=== PATIENT | female | born 1960 | race African-American/Black ===

== ENCOUNTER 2021-10-22 17:04 | Inpatient (IN) | payer OTHER ==
[~2021-10-22] VITALS: Ht 180.3 cm; Wt 113.4 kg
[2021-10-22 17:18] VITALS: BP 85/47
[2021-10-22] MEDS ORDERED: methylPREDNISolone SS 125 MG in WATER STERILE 2 ML IV ONE (17:35)
[2021-10-22] MEDS ORDERED: ALBUTEROL 0.083% 2.5 MG/3 ML NEBU INH ONE (17:35)
[2021-10-22] MEDS ORDERED: IPRATROPIUM 0.02% 0.5 MG/2.5 ML NEBU INH ONE (17:35)
[2021-10-22] MEDS ORDERED: NACL 0.9% 1,000 ML IV SCH (17:35)
[2021-10-22] MEDS ORDERED: methylPREDNISolone SS 125 MG/2 ML VIAL IVP SCH (17:35)
[2021-10-22] MEDS ORDERED: NACL 0.9% 1,000 ML IV ONE ×2 (17:35→19:35)
[2021-10-22] MEDS ORDERED: MIDAZOLAM 5 MG/5 ML VIAL IV ONE (18:20)
[2021-10-22] MEDS ORDERED: MIDAZOLAM 5 MG/5 ML VIAL ONE (18:24)
[2021-10-22 18:31] LABS: BASOPHILS # (AUTO) 0.1 K/uL (0.00-0.22); BASOPHILS % (AUTO) 0.6 % (0.0-2.0); EOSINOPHILS % (AUTO) 0.4 % (0.0-4.0); HEMATOCRIT 37.2 % (36-48); HEMOGLOBIN 11.7 g/dL (12.0-16.0); LYMPHOCYTES # (AUTO) 1.7 K/uL (2.5-16.5); LYMPHOCYTES % (AUTO) 15.3 % (20.5-51.1); MEAN CORPUSCULAR HEMOGLOBIN 28 pg (27-31); MEAN CORPUSCULAR HGB CONC 31 g/dL (33-37); MONOCYTES # (AUTO) 0.7 K/uL (0.8-1.0); MONOCYTES % (AUTO) 6.6 % (1.7-9.3); NEUTROPHILS # (AUTO) 8.7 K/uL (1.8-7.7); NEUTROPHILS % (AUTO) 77.1 % (42.2-75.2); PLATELET COUNT (AUTO) 257 K/uL (140-450); RED BLOOD CELL COUNT(AUTO) 4.22 MIL/uL (4.20-5.40); WHITE BLOOD COUNT (AUTO) 11.3 K/uL (4.8-10.8)
[2021-10-22 18:52] LABS: ALBUMIN 3.5 g/dL (3.4-5.0); CREATININE 2.3 mg/dL (0.6-1.3); TOTAL BILIRUBIN 0.2 mg/dL (0.0-1.0)
[2021-10-22] MEDS ORDERED: ONDANSETRON 4 MG/2 ML VIAL IVP ONE (19:00)
[2021-10-22 20:14] LABS: PROTHROMBIN TIME 10.8 secs (10.8-13.4)
[2021-10-22] MEDS ORDERED: ONDANSETRON 4 MG/2 ML VIAL IM/IVP PRN (21:25)
[2021-10-22] MEDS ORDERED: ZOLPIDEM 5 MG TAB PO PRN (21:25)
[2021-10-22] MEDS ORDERED: guaiFENesin DM 200/20 MG-10 ML 10 ML UDC PO PRN (21:25)
[2021-10-22] MEDS ORDERED: POTASSIUM CHLORIDE 10 MEQ TABER PO PRN (21:25)
[2021-10-22] MEDS ORDERED: HYDROcodone/APAP 7.5/325 MG 1 TAB PO PRN (21:25)
[2021-10-22] MEDS ORDERED: DOCUSATE SODIUM 100 MG GELCAP PO PRN (21:25)
[2021-10-22] MEDS ORDERED: ACETAMINOPHEN 325 MG TAB PO PRN (21:25)
[2021-10-22] MEDS ORDERED: ALBUTEROL SULFATE/IPRATROPIU 3 ML SOL IH PRN (21:30)
[2021-10-22] MEDS ORDERED: NACL 0.9% 2,000 ML IV ONE (21:30)
[2021-10-22 22:15] LABS: CHOL/HDL RATIO 2.5 (1-4.5); FREE T4 (FREE THYROXINE) 0.97 ng/dL (0.76-1.46); MAGNESIUM 1.8 mg/dL (1.8-2.4); PHOSPHORUS 5.7 mg/dL (2.5-4.9); THYROID STIMULATING HORMONE 0.66 uIU/mL (0.34-3.74)
[2021-10-22] MEDS ORDERED: ONDANSETRON 4 MG/2 ML VIAL IVP PRN (22:25)
[2021-10-22 23:45] LABS: APPEARANCE,URINE CLEAR (CLEAR); BILIRUBIN,URINE NEGATIVE (NEGATIVE); BLOOD, URINE 1+ (NEGATIVE); COLOR,URINE YELLOW (YELLOW); LEUKOCYTE ESTERASE ,URINE NEGATIVE (NEGATIVE); NITRITE, URINE NEGATIVE (NEGATIVE); UGLUCOSE NEGATIVE (NEGATIVE)
[2021-10-23 00:26] LABS: BARBITURATE, URINE NEGATIVE ng/ml (NEG <=200); BENZODIAZEPINE, URINE NEGATIVE ng/mL (NEG <=200); CANNABINOID, URINE NEGATIVE ng/mL (NEG <=50); COCAINE, URINE NEGATIVE ng/mL (NEG <=300); OPIATE, URINE NEGATIVE ng/mL (NEG <=2000); PHENCYCLIDINE SCREEN,URINE NEGATIVE ng/mL (NEG <=25)
[2021-10-23 00:29] LABS: CALCIUM OXALATE CRYSTALS,UR None Seen /HPF (None Seen); OTHER CRYSTALS,URINE None Seen /HPF (None Seen); TRICHOMONAS,URINE None Seen /HPF (None Seen); TRIPLE PHOSPHATE CRYSTAL,UR None Seen /HPF (None Seen); URIC ACID CRYSTALS,URINE None Seen /HPF (None Seen); URINE AMORPHOUS URATE None Seen /HPF (None Seen); YEAST,URINE None Seen /HPF (None Seen)
[2021-10-23] MEDS: NACL 0.9% 1,000 ML IV SCH ×4 (00:32→21:41)
[2021-10-23 04:00] VITALS: BP 106/61
[2021-10-23] MEDS: ALBUTEROL SULFATE/IPRATROPIU 3 ML SOL IH SCH ×3 (07:19→19:48)
[2021-10-23 08:00] VITALS: BP 136/57
[2021-10-23 08:28] LABS: BARBITURATE, URINE NEGATIVE ng/ml (NEG <=200); BENZODIAZEPINE, URINE NEGATIVE ng/mL (NEG <=200); CANNABINOID, URINE NEGATIVE ng/mL (NEG <=50); COCAINE, URINE NEGATIVE ng/mL (NEG <=300); OPIATE, URINE NEGATIVE ng/mL (NEG <=2000); PHENCYCLIDINE SCREEN,URINE NEGATIVE ng/mL (NEG <=25)
[2021-10-23] MEDS: PANTOPRAZOLE 40 MG TABEC PO SCH (08:29)
[2021-10-23 08:38] LABS: BASOPHILS # (AUTO) 0.1 K/uL (0.00-0.22); BASOPHILS % (AUTO) 0.8 % (0.0-2.0); EOSINOPHILS # (AUTO) 0.2 K/uL (0-0.4); EOSINOPHILS % (AUTO) 2.1 % (0.0-4.0); HEMATOCRIT 35.1 % (36-48); HEMOGLOBIN 11.3 g/dL (12.0-16.0); LYMPHOCYTES # (AUTO) 2.9 K/uL (2.5-16.5); LYMPHOCYTES % (AUTO) 28.9 % (20.5-51.1); MEAN CORPUSCULAR HEMOGLOBIN 28 pg (27-31); MEAN CORPUSCULAR HGB CONC 32 g/dL (33-37); MONOCYTES # (AUTO) 1.2 K/uL (0.8-1.0); MONOCYTES % (AUTO) 12.5 % (1.7-9.3); NEUTROPHILS # (AUTO) 5.5 K/uL (1.8-7.7); NEUTROPHILS % (AUTO) 55.7 % (42.2-75.2); PLATELET COUNT (AUTO) 249 K/uL (140-450); RED BLOOD CELL COUNT(AUTO) 3.98 MIL/uL (4.20-5.40); RED CELL DISTRIBUTION WIDTH 15.4 % (11.6-13.7); WHITE BLOOD COUNT (AUTO) 9.9 K/uL (4.8-10.8)
[2021-10-23 09:07] LABS: ANION GAP 14.8 (8-16); CARBON DIOXIDE 22.7 mmol/L (21-32); CREATININE 0.9 mg/dL (0.6-1.3); POTASSIUM 4.5 mmol/L (3.5-5.1)
[2021-10-23 12:00] VITALS: BP 120/45
[2021-10-23 16:00] VITALS: BP 133/77
[2021-10-23 20:00] VITALS: BP 113/69
[2021-10-24] VITALS: BP 116/75
[2021-10-24 04:00] VITALS: BP 106/66
[2021-10-24] MEDS: NACL 0.9% 1,000 ML IV SCH (04:52)
[2021-10-24] MEDS: ALBUTEROL SULFATE/IPRATROPIU 3 ML SOL IH SCH ×3 (06:17→18:59)
[2021-10-24 07:00] LABS: ANION GAP 10.7 (8-16); CARBON DIOXIDE 26.6 mmol/L (21-32); CREATININE 0.8 mg/dL (0.6-1.3); POTASSIUM 4.3 mmol/L (3.5-5.1)
[2021-10-24 07:04] LABS: BASOPHILS # (AUTO) 0.1 K/uL (0.00-0.22); BASOPHILS % (AUTO) 0.9 % (0.0-2.0); EOSINOPHILS # (AUTO) 0.3 K/uL (0-0.4); EOSINOPHILS % (AUTO) 5.1 % (0.0-4.0); HEMATOCRIT 31.6 % (36-48); HEMOGLOBIN 10.4 g/dL (12.0-16.0); LYMPHOCYTES # (AUTO) 1.9 K/uL (2.5-16.5); LYMPHOCYTES % (AUTO) 30.7 % (20.5-51.1); MEAN CORPUSCULAR HEMOGLOBIN 28 pg (27-31); MEAN CORPUSCULAR HGB CONC 33 g/dL (33-37); MEAN CORPUSCULAR VOLUME 86.5 fL (80-94); MONOCYTES # (AUTO) 0.6 K/uL (0.8-1.0); NEUTROPHILS # (AUTO) 3.4 K/uL (1.8-7.7); NEUTROPHILS % (AUTO) 53.3 % (42.2-75.2); PLATELET COUNT (AUTO) 253 K/uL (140-450); RED BLOOD CELL COUNT(AUTO) 3.66 MIL/uL (4.20-5.40); RED CELL DISTRIBUTION WIDTH 15.3 % (11.6-13.7); WHITE BLOOD COUNT (AUTO) 6.3 K/uL (4.8-10.8)
[2021-10-24 08:00] VITALS: BP 138/62
[2021-10-24 08:07] LABS: T4 (THYROXINE) 7.7 ug/dL (4.5-12.0)
[2021-10-24] MEDS: PANTOPRAZOLE 40 MG TABEC PO SCH (08:33)
[2021-10-24] MEDS ORDERED: DEXTROSE 50% 50 ML SYR IVP PRN (09:05)
[2021-10-24] MEDS: AZITHROMYCIN 250 MG TAB PO SCH (10:04)
[2021-10-24] MEDS: predniSONE 20 MG TAB PO SCH (10:04)
[2021-10-24] MEDS: POLYETHYLENE GLYCOL 17 GM/PKT PO SCH (10:56)
[2021-10-24 12:00] VITALS: BP 127/79
[2021-10-24] MEDS: BLOOD GLUCOSE MONITORING 1 DEV DEV FS SCH ×3 (12:13→20:18)
[2021-10-24 16:00] VITALS: BP 128/71
[2021-10-24] MEDS: INSULIN LISPRO SLIDING SCALE 100 UNITS/ML VIAL SUBQ PRN ×2 (16:56→20:21)
[2021-10-24 20:00] VITALS: BP 110/63
[2021-10-25] VITALS: BP 106/67
[2021-10-25 04:00] VITALS: BP 147/95
[2021-10-25] MEDS: BLOOD GLUCOSE MONITORING 1 DEV DEV FS SCH ×2 (06:32→11:47)
[2021-10-25] MEDS: ALBUTEROL SULFATE/IPRATROPIU 3 ML SOL IH SCH ×2 (06:35→13:15)
[2021-10-25 07:05] LABS: BASOPHILS % (AUTO) 0.3 % (0.0-2.0); EOSINOPHILS # (AUTO) 0.1 K/uL (0-0.4); EOSINOPHILS % (AUTO) 1.2 % (0.0-4.0); HEMATOCRIT 32.3 % (36-48); HEMOGLOBIN 10.5 g/dL (12.0-16.0); LYMPHOCYTES # (AUTO) 2.3 K/uL (2.5-16.5); MEAN CORPUSCULAR HEMOGLOBIN 28 pg (27-31); MEAN CORPUSCULAR HGB CONC 33 g/dL (33-37); MEAN CORPUSCULAR VOLUME 86.5 fL (80-94); MONOCYTES # (AUTO) 0.9 K/uL (0.8-1.0); MONOCYTES % (AUTO) 7.9 % (1.7-9.3); NEUTROPHILS # (AUTO) 7.7 K/uL (1.8-7.7); NEUTROPHILS % (AUTO) 69.6 % (42.2-75.2); PLATELET COUNT (AUTO) 274 K/uL (140-450); RED BLOOD CELL COUNT(AUTO) 3.74 MIL/uL (4.20-5.40); RED CELL DISTRIBUTION WIDTH 14.9 % (11.6-13.7)
[2021-10-25 07:20] LABS: ANION GAP 12.9 (8-16); CARBON DIOXIDE 25.8 mmol/L (21-32); CREATININE 0.7 mg/dL (0.6-1.3); POTASSIUM 3.7 mmol/L (3.5-5.1)
[2021-10-25] MEDS: AZITHROMYCIN 250 MG TAB PO SCH (09:00)
[2021-10-25] MEDS: predniSONE 20 MG TAB PO SCH (09:00)
[2021-10-25] MEDS: PANTOPRAZOLE 40 MG TABEC PO SCH (09:00)
[2021-10-25] MEDS: POLYETHYLENE GLYCOL 17 GM/PKT PO SCH (09:00)
[2021-10-25 10:31] VITALS: BP 115/69
[2021-10-25] MEDS ORDERED: POLY17PD46 PO (10:44)
[2021-10-25] MEDS ORDERED: PRED20TA5 PO ×2 (10:44→11:27)
[2021-10-25] MEDS ORDERED: AZIT250T11 PO (10:44)
[2021-10-25] MEDS ORDERED: PANT40EC PO (10:45)
[2021-10-25 11:05] VITALS: BP 125/76
[2021-10-25] MEDS ORDERED: PRED10TA5 PO (11:28)
[2021-10-25] MEDS ORDERED: PRED5TAB7 PO (11:30)
== END 2021-10-25 14:00 | disposition home or self-care (01) | DRG 141 ==
LOC: MED 17:04 → MTU 20:35 → MIC 10-23 06:36 → MTU 10-23 22:40
PROVIDERS: ADMIT Family Medicine; ATTEND Family Medicine
DX: J45.901 Unspecified asthma with (acute) exacerbation (principal); J96.01 Acute respiratory failure with hypoxia; N17.0 Acute kidney failure with tubular necrosis; J44.1 Chronic obstructive pulmonary disease with (acute) exacerbation; E87.2 Acidosis; E11.9 Type 2 diabetes mellitus without complications; E86.0 Dehydration; D64.9 Anemia, unspecified; Z20.822 Contact with and (suspected) exposure to COVID-19; G40.909 Epilepsy, unspecified, not intractable, without status epilepticus; Z85.038 Personal history of other malignant neoplasm of large intestine; Z85.3 Personal history of malignant neoplasm of breast; Z88.6 Allergy status to analgesic agent; Z79.899 Other long term (current) drug therapy
CPT/HCPCS: 36415; 36600; 71045; 80048; 80053; 80185; 80305; 81001; 82150; 82803; 82948; 83036; 83605; 83690; 83735; 83880; 84100; 84436; 84439; 84443; 84479; 84484; 85025; 85610; 85730; 87040; 87081; 87086; 93005; 94640; 96361; 96374; 96375; 99291; J1815; J2250; J2405; J7512; J7613; J7644; Q0092